=== PATIENT | male | born 1950 | race Caucasian/White ===

== ENCOUNTER → 2022-03-14 09:42 | Outpatient (BNVA) | payer MEDICARE, SELFPAY | PROVIDERS: PCP Nurse Practitioner Family; Referring Provider Nurse Practitioner Family; Visit Provider Internal Medicine Cardiovascular Disease | DX: I48.0 Paroxysmal atrial fibrillation (principal); R06.09 Other forms of dyspnea; G47.10 Hypersomnia, unspecified | CPT/HCPCS: 93005; 99202 ==

== ENCOUNTER → 2022-04-04 07:20 | Outpatient (REF) | payer MEDICARE, SELFPAY ==
--- NOTE | 2022-04-04 07:24 | CA_ITS ---
Transthoracic Echocardiogram Patient (Last, First, Middle): Miles Mitchell, Gender: Male Date of : 1950 Age: 71 Procedure Date: 04/04/2022 Procedure Type: Transthoracic Echocardiogram Location: OP Height: 175.26 cm Weight: 86.18 kg BSA: 2.02 m2 Heart Rate: 66 bpm BP: 144 / 70 mmHg Director Sales Support: JANI Referring MD: Mac Contreras MD Symptoms: R06.09 - Other forms of dyspnea Study Quality: Adequate ECG Rhythm: Sinus Conclusions: - The left ventricular systolic function is normal. The calculated ejection fraction is 62% by biplane method. - No obvious valvular pathology seen on this study. Findings Left Ventricle Normal left ventricular cavity size. The left ventricular systolic function is normal. The calculated ejection fraction is 62% by biplane method. There is no evidence of regional wall motion abnormalities. Diastolic function is normal for age. There is mild septal asymmetric hypertrophy. LV peak GLS 17%. Right Ventricle Mildly increased right ventricular cavity size. There is normal right ventricular systolic function. Atria Both atria are normal in size. Aortic Valve There is a normal trileaflet aortic valve. There is mild calcification of the aortic valve. There is no aortic valve stenosis. There is no aortic valve regurgitation. Mitral Valve The mitral valve appears normal. There is no mitral valve regurgitation. There is no mitral valve stenosis. Pulmonic Valve The pulmonic valve is likely normal. Tricuspid Valve Normal tricuspid valve structure. There is no tricuspid valve regurgitation. Tricuspid regurgitation envelope is inadequate for calculation of right ventricular systolic pressure. Great Vessels The asc aorta is normal in size. Venous The inferior vena cava is normal in size and collapses greater than 50% with inspiration. Pericardium/Pleural There is no evidence of pericardial effusion. Prior Study Comparison No prior study available for comparison. Recommendations, Care & Conclusions No obvious valvular pathology seen on this study. Measurements 2D Linear Measurements IVSd: 1.07 0.6-0.9/0.6-1.0 cm LVIDd: 5.39 3.9-5.3/4.2-5.9 cm LVIDd Index: 2.67 2.4-3.2/2.2-3.1 cm/m2 LVIDs: 3.01 2.0-3.6 cm LVPWd: 0.91 0.7-1.1 cm LA Diam: 3.90 2.7-3.8/3.0-4.0 cm LAIDs Index: 1.93 1.5-2.3 cm/m2 LV Mass: 252.80 67-162/88-224 g LV Mass Index: 125.15 43-95/49-115 g/m2 LVOT Diam: 2.20 3.0+(-)1.3 cm 2D Systolic Function EF 4C: 64.70 >55% EF 2C: 59.80 >55% EF BiP: 62.40 >55% Mitral Valve MV Pk E: 0.78 MV PK A: 0.75 MV Decel Time: 200.00 E/A: 1.00 E'Lateral: 8.81 E'Medial: 5.98 E/E' Med: 13.10 E/E' Lat: 8.90 PHT: 59.00 MVA PHT: 3.73 Decel Queens: 3.91 Aortic Valve AoV Pk Julian: 1.45 AoV Mn Julian: 1.04 AoV VTI: 0.30 AoV Pk Grad: 8.00 Aov Mn Grad: 5.00 TOMMIE Cont.VTI: 3.11 LVOT LVOT Pk Julian: 1.16 LVOT Mn Julian: 0.85 LVOT VTI: 0.25 LVOT Pk Grad: 5.00 LVOT Mn Grad: 3.00 LVOT Diam: 2.20 LVOT Area: 3.80 Diastolic Function MV Pk E: 0.78 MV Pk A: 0.75 E/A: 1.00 E'Medial: 5.98 E/E' Med: 13.10 E' Laterial: 8.81 E/E' Lat: 8.90 Right Ventricle TAPSE (mm): 25.40 TVS' Julian: 15.40 Tricuspid Valve RA Press: 3.00 Great Vessels Aorta Sinus of Valsalva: 3.60 2.0-3.5 cm Ao Asc: 3.40 2.1-3.4 cm Pulmonary Valve PV Pk Julian: 0.97 Peak PV Grad: 4.00 Updated in Other Vendor System with Status of Final Hari Gupta MD electronically signed on 04/05/2022 9:59:14 AM with status of Final
== END ==
LOC: HO.CARD 07:20
PROVIDERS: PCP Nurse Practitioner Family; Visit Provider Internal Medicine Cardiovascular Disease
DX: R06.09 Other forms of dyspnea (principal)
CPT/HCPCS: 93306; 93356

== ENCOUNTER → 2022-04-05 10:44 | Outpatient (REF) | payer MEDICARE, SELFPAY ==
--- NOTE | 2022-04-05 10:51 | CA_ITS ---
Acquisition Time: 2022-04-05 11:01:24 Total Exercise Time: 00:10:30 Test Indications: Dyspnea Medications: ELIQUIS DILTIAZEM DOXAZOSIN GLIPIZIDE LOSARTAN METFORMIN SILDENFIL Protocol: LISA Max HR: 141 BPM 93% of Pred: 151 BPM Max BP: 170/058 mmHG Max Work Load: 12.5 METS Exercise stress test with exercise 10 min 30 sec of Lisa protocol, achieving 93% MPHR, with fatigue and mild to mod sob with need to stop, no chest discomfort, without arrythmia during exercise, with one ventricular cuplet in early recovery, with normotensive response to exercise, with some EKG tracings showing ST depressions inferiorly and V6 that are suggestive of ischemia. Echo images obtained by [facility] at rest and immediately post peak exercise. Definity contrast used. Test reviewed with Dr Sparks. Referred By: Mac Contreras Overread By: JONAS WILL
== END ==
LOC: HO.CARD 10:44
PROVIDERS: PCP Nurse Practitioner Family; Visit Provider Internal Medicine Cardiovascular Disease
DX: I48.91 Unspecified atrial fibrillation (principal)
CPT/HCPCS: 93350; Q9957

== ENCOUNTER → 2022-04-26 08:25 | Outpatient (BNVA) | payer MEDICARE, SELFPAY | PROVIDERS: PCP Nurse Practitioner Family; Referring Provider Nurse Practitioner Family; Visit Provider Internal Medicine Cardiovascular Disease | DX: I48.0 Paroxysmal atrial fibrillation (principal); I10 Essential (primary) hypertension; R42 Dizziness and giddiness; Z79.01 Long term (current) use of anticoagulants; Z79.899 Other long term (current) drug therapy | CPT/HCPCS: 99212 ==

== ENCOUNTER 2022-12-05 12:39 | Outpatient (AMB) | payer MEDICARE, SELFPAY ==
[2022-12-05 12:42] VITALS: BP 104/58; PULSE 73; BMI 28.6
--- NOTE | 2022-12-05 12:42 | A.OFFVIS_ITS ---
Intake Vital Signs 12/05/22 12:42 Height 5 ft 9 in Weight 194 lb 0.108 oz BMI 28.6 BP 104/58 L Blood Pressure Location Lt brachial Position Sitting Pulse 73 Pulse Source Pulse Oximeter Intake Visit Reasons: 6 mth f/up Intake Note: 6 month follow up. No new complaints. Histological Illustrator Required: No Accompanied by: Self / Same As Patient Allergies No Known Allergies Allergy (Verified 12/05/22 12:43) Medication List - Last Reconciled 12/05/22 by Mac Contreras MD alclometasone 0.05% appl topical amlodipine 10 mg PO DAILY apixaban (Eliquis) 5 mg PO BID biotin 1 mg PO DAILY cholecalciferol (vitamin D3) 25 mcg PO DAILY diltiazem HCl 180 mg PO DAILY doxazosin 4 mg PO DAILY glipizide ER mg PO [id number] tabs PO losartan 100 mg PO DAILY lovastatin 10 mg PO DAILY metformin 1,000 mg PO BID sildenafil (pulm.hypertension) 20 mg PO DAILY PRN HPI HPI Comments History of Present Illness Details Miles comes for follow-up. He remains asymptomatic. He had 1 episode of palpitation at home any today EKG at home which showed sinus rhythm. He has not had any major episodes of atrial fibrillation. He has been doing well. No bleeding issues or neurologic events. His shortness of breath seems to have improved with exercise. Denies any exertional chest pain. No lightheadedness, syncope. Noted that he is on dual calcium channel patrick therapy for unclear reason, both amlodipine and diltiazem. His blood pressure today is on the lower side. [facility], [facility] Medical History Diabetes HTN (hypertension) Paroxysmal atrial fibrillation Surgical History Hx of prostate biopsy Family History Father Cancer Mother Stroke Social History Alcohol intake: current Alcohol intake frequency: 0-2 drinks per day Alcohol type: beer Patient Tobacco Use Status: Never used Tobacco Review of Systems Const Denies weakness ENT Denies dizziness Card Denies chest pain, Denies chest pain with activity, Denies syncope, Denies rapid heart rate, Denies pedal edema, Denies edema, Denies leg edema, Denies lightheadedness, Denies palpitations, Denies dyspnea, Denies dyspnea on exertion and Denies orthopnea Resp Denies cough, Denies dyspnea and Denies dyspnea on exertion GI Denies hematochezia and Denies change in stool character Musc Denies abnormal gait, Denies muscle cramps, Denies muscle weakness, Denies numbness, Denies radiating pain into limb and Denies tingling Neuro Denies Abnormal speech present, Denies abnormal gait, Denies dizziness, Denies syncope, Denies numbness, Denies tingling and Denies weakness Endo Denies palpitations Physical Exam Vital Signs: Last Vital Signs Pulse 73 12/05/22 12:42 BP 104/58 L 12/05/22 12:42 BMI result Body Mass Index 28.6 Const General: cooperative, comfortable, no acute distress, alert, awake, anxious and well groomed Nutritional Appearance: overweight Orientation/consciousness: patient oriented x3 Limitations: no limitations Neck Neck: Yes trachea midline, Yes supple and Yes no JVD Carotids: no bruits Chest Chest palpation & inspection: normal inspection of the chest Resp Effort & Inspection: normal respiratory effort Auscultation: clear to auscultation bilaterally Cardio Jugular venous distension: no JVD Palpation: normal PMI Rate: regular rate Rhythm: regular rhythm Heart sounds: S1 normal heart sound present, S2 normal heart sound present, no click, no gallops, no murmurs and no rubs GI Auscultation: normal bowel sounds Neuro General: patient oriented x3 and no focal motor deficits Speech: No Abnormal speech present Extrem General: Yes no clubbing, cyanosis or edema Psych Appearance: grossly normal Affect: Anxious affect present Assessment & Plan Assessment & Plan (1) Paroxysmal atrial fibrillation: Code(s): I48.0 - Paroxysmal atrial fibrillation Plan: Paroxysmal atrial fibrillation without any clinical recurrence. Continue diltiazem therapy. Continue rhythm control approach, has done well with rhythm control approach. At this time does not require antiarrhythmic drug therapy. Advised to monitor his symptoms and EKGs at home. Advised to call me if he has recurrent episodes. Continue full oral anticoagulation, currently on Eliquis 5 mg b.i.d.. Semi annual renal function test should be pursued. CHADSVASc score of 3. (2) HTN (hypertension): Code(s): I10 - Essential (primary) hypertension Plan: Hypertension which may be over corrected. He is on dual calcium channel patrick therapy with amlodipine and diltiazem. Advised to discontinue amlodipine therapy at this point time. Advised to monitor blood pressure at home and maintain a log. If his blood pressures consistently above systolic 130, advised to call my office. At which point we may increase diltiazem and/or add hydrochlorothiazide to his regimen. Low-salt diet was discussed advised to participate heart healthy lifestyle. Will follow up in the clinic in 1 year's time, sooner p.r.n.. Thank you for allowing me to partake in his care Coding Level of Care Code Est Pt Level 4 (44924) Diagnoses Paroxysmal atrial fibrillation I48.0 HTN (hypertension) I10
== END 2022-12-05 13:01 | disposition home or self-care (01) ==
PROVIDERS: Visit Provider Internal Medicine Cardiovascular Disease
DX: I48.0 Paroxysmal atrial fibrillation (principal); I10 Essential (primary) hypertension
CPT/HCPCS: 99214

== ENCOUNTER → 2022-12-05 12:39 | Outpatient (BNVA) | payer MEDICARE, SELFPAY | PROVIDERS: Visit Provider Internal Medicine Cardiovascular Disease | DX: I48.0 Paroxysmal atrial fibrillation (principal); I10 Essential (primary) hypertension | CPT/HCPCS: 99212 ==

== ENCOUNTER → 2023-08-03 09:50 | Outpatient (REF) | payer MEDICARE, SELFPAY ==
--- NOTE | 2023-08-03 09:52 | CA_ITS ---
Transthoracic Echocardiogram Patient (Last, First, Middle): Miles Mitchell, Gender: Male Date of : 1950 Age: 72 Procedure Date: 08/03/2023 Procedure Type: Transthoracic Echocardiogram Location: OP Height: 175.26 cm Weight: 86.18 kg BSA: 2.02 m2 Heart Rate: bpm BP: 118 / 62 mmHg Local Bulk Driver: TO Referring MD: Mac Contreras MD Symptoms: G45.3 - Amaurosis fugax Study Quality: Fair Conclusions: - Normal left ventricular size, thickness, systolic function, and wall motion. The visually estimated ejection fraction is between 60-65%. Diastolic function is normal for age. Normal GLS -18%. - Normal right ventricular cavity size and systolic function. - The left atrium is mildly dilated. - There is mild dilatation of the sinuses of Valsalva measuring 3.71 cm and mild dilatation of the ascending aorta measuring 3.50 cm. Findings Left Ventricle Normal left ventricular size, thickness, systolic function, and wall motion. The visually estimated ejection fraction is between 60-65%. Diastolic function is normal for age. Normal GLS -18%. Right Ventricle Normal right ventricular cavity size and systolic function. Atria The left atrium is mildly dilated. The right atrium is normal in size. Aortic Valve Normal aortic valve structure and function. There is no aortic valve stenosis. There is no aortic valve regurgitation. Mitral Valve The mitral valve appears normal. There is trace mitral valve regurgitation. There is no mitral valve stenosis. Pulmonic Valve The pulmonic valve is normal. There is no pulmonic valve regurgitation. Tricuspid Valve Normal tricuspid valve structure. There is trace tricuspid valve regurgitation. Normal right atrial pressure. Great Vessels There is mild dilatation of the sinuses of Valsalva measuring 3.71 cm and mild dilatation of the ascending aorta measuring 3.50 cm. The visualized portions of the pulmonary artery and branches are normal. Venous The inferior vena cava is normal in size and collapses greater than 50% with inspiration. Pericardium/Pleural There is no evidence of pericardial effusion. Measurements 2D Linear Measurements IVSd: 0.97 0.6-0.9/0.6-1.0 cm LVIDd: 5.30 3.9-5.3/4.2-5.9 cm LVIDd Index: 2.62 2.4-3.2/2.2-3.1 cm/m2 LVIDs: 3.20 2.0-3.6 cm LVPWd: 0.82 0.7-1.1 cm LA Diam: 3.30 2.7-3.8/3.0-4.0 cm LAIDs Index: 1.63 1.5-2.3 cm/m2 LV Mass: 215.20 67-162/88-224 g LV Mass Index: 106.53 43-95/49-115 g/m2 LVOT Diam: 2.30 3.0+(-)1.3 cm 2D Systolic Function EF 4C: 59.70 >55% EF 2C: 59.00 >55% EF BiP: 59.00 >55% Mitral Valve MV Pk E: 0.57 MV PK A: 0.43 MV Decel Time: 223.00 E/A: 1.30 E'Lateral: 6.96 E'Medial: 6.64 E/E' Med: 8.60 E/E' Lat: 8.20 PHT: 65.00 MVA PHT: 3.38 Decel [place]: 2.57 Aortic Valve AoV Pk Julian: 1.40 AoV Mn Julian: 0.98 AoV VTI: 0.28 AoV Pk Grad: 8.00 Aov Mn Grad: 4.00 TOMMIE Cont.VTI: 3.09 LVOT LVOT Pk Julian: 1.08 LVOT Mn Julian: 0.66 LVOT VTI: 0.21 LVOT Pk Grad: 5.00 LVOT Mn Grad: 2.00 LVOT Diam: 2.30 LVOT Area: 4.15 Diastolic Function MV Pk E: 0.57 MV Pk A: 0.43 E/A: 1.30 E'Medial: 6.64 E/E' Med: 8.60 E' Laterial: 6.96 E/E' Lat: 8.20 Right Ventricle TAPSE (mm): 28.10 TVS' Julian: 12.40 Tricuspid Valve RA Press: 3.00 Great Vessels Aorta Sinus of Valsalva: 3.71 2.0-3.5 cm Ao Asc: 3.50 2.1-3.4 cm Updated in Other Vendor System with Status of Final Tirso Sparks MD electronically signed on 08/05/2023 12:33:41 PM with status of Final
== END ==
LOC: HO.CARD 09:50
PROVIDERS: Visit Provider Internal Medicine Cardiovascular Disease
DX: G45.3 Amaurosis fugax (principal); R06.09 Other forms of dyspnea; I48.0 Paroxysmal atrial fibrillation; I10 Essential (primary) hypertension
CPT/HCPCS: 93306; 93356

== ENCOUNTER → 2023-08-03 09:52 | Outpatient (BNV) | payer MEDICARE, SELFPAY | PROVIDERS: Visit Provider Internal Medicine Cardiovascular Disease | DX: G45.3 Amaurosis fugax (principal) | CPT/HCPCS: 93306; 93356 ==

== ENCOUNTER 2023-12-24 13:43 | Outpatient (AMB) | payer MEDICARE, SELFPAY ==
--- NOTE | 2023-12-24 13:47 | A.OFFVIS_ITS ---
Vital Signs 12/24/23 13:48 Height 5 ft 9 in Weight 187 lb 13.341 oz BMI 27.7 BP 130/70 Blood Pressure Location Lt brachial Position Sitting Pulse 75 Pulse Source Monitor Intake Visit Reasons: 1 yr f/up Intake Note: 1 yr f/up- pt is doing fine Meter Calibrator Required: No Accompanied by: Self / Same As Patient Allergies No Known Allergies Allergy (Verified 12/05/22 12:43) Medication List - Last Reconciled 12/24/23 by Mac Contreras MD alclometasone 0.05% appl topical atorvastatin 80 mg PO DAILY cholecalciferol (vitamin D3) 25 mcg PO DAILY dabigatran etexilate (Pradaxa) 150 mg PO BID 30 days diltiazem HCl CD 180 mg PO DAILY glipizide ER mg PO BID [id number] tabs PO losartan 100 mg PO DAILY mecobalamin (vitamin B12) 2,000 mcg PO DAILY metformin 1,000 mg PO BID sildenafil (pulm.hypertension) 20 mg PO DAILY PRN HPI Comments Details: Miles comes for follow-up. He has been doing very well from cardiac perspective. He has had no cardiac symptoms including with exertion. He has had no prolonged irregular heartbeat or palpitations. Been monitoring his EKG on a regular basis at home and there is no evidence of atrial fibrillation. He is currently on dabigatran for anticoagulation tolerating well. No bleeding issues or neurologic events. Recent echocardiogram shows normal LV ejection fraction with mild left atrial enlargement and upper limits of normal ascending aortic size. He has no symptoms of heart failure. Denies any lightheadedness, syncope. Takes all his medications regularly. [facility] Medical History Diabetes HTN (hypertension) Paroxysmal atrial fibrillation Surgical History Hx of prostate biopsy Family History Father Cancer Mother Stroke Social History Alcohol intake: current Alcohol intake frequency: 0-2 drinks per day Alcohol type: beer Patient Tobacco Use Status: Never used Tobacco Review of Systems Const Denies chills, Denies fatigue, Denies fever(s), Denies frequent falls, Denies weakness, Denies weight gain and Denies weight loss ENT Denies dizziness Card Denies chest pain, Denies leg edema, Denies lightheadedness, Denies palpitations, Denies dyspnea and Denies dyspnea on exertion Resp Denies cough, Denies dyspnea and Denies dyspnea on exertion GI Denies hematochezia Musc Denies abnormal gait, Denies muscle weakness, Denies numbness, Denies radiating pain into limb and Denies tingling Neuro Denies Abnormal speech present, Denies abnormal gait, Denies dizziness, Denies frequent falls, Denies numbness, Denies tingling and Denies weakness Endo Denies fatigue and Denies palpitations Physical Exam Vital Signs: Last Vital Signs Pulse 75 12/24/23 13:48 BP 130/70 12/24/23 13:48 BMI result Body Mass Index 27.7 Const General: cooperative, comfortable, no acute distress, alert, awake, anxious and well groomed Nutritional Appearance: overweight Orientation/consciousness: patient oriented x3 Limitations: no limitations Neck Neck: Yes trachea midline, Yes supple and Yes no JVD Carotids: no bruits Chest Chest palpation & inspection: normal inspection of the chest Resp Effort & Inspection: normal respiratory effort Auscultation: clear to auscultation bilaterally Cardio Jugular venous distension: no JVD Palpation: normal PMI Rate: regular rate Rhythm: regular rhythm Heart sounds: S1 normal heart sound present, S2 normal heart sound present, no click, no gallops, no murmurs and no rubs GI Auscultation: normal bowel sounds Neuro General: patient oriented x3 and no focal motor deficits Speech: No Abnormal speech present Extrem General: Yes no clubbing, cyanosis or edema Psych Appearance: grossly normal Affect: Anxious affect present Office Procedures EKG Details: EKG shows normal sinus rhythm with normal EKG [id number], Complete Assessment & Plan Assessment & Plan (1) Paroxysmal atrial fibrillation: Code(s): I48.0 - Paroxysmal atrial fibrillation Category: Medical Plan: Paroxysmal atrial fibrillation which has remained suppressed and has done well on current medical therapy including with Cardizem. Continue Cardizem therapy. Continue aggressive risk factor modification. CHADSVASC score of at least 3. Continue full oral anticoagulation, currently on dabigatran 150 mg b.i.d.. Semi annual renal function test and annual CBC should be pursued. Avoidance of stimulants was discussed. No indication for antiarrhythmic drug therapy. Has done well with rhythm control approach will continue pursue the same. (2) HTN (hypertension): Code(s): I10 - Essential (primary) hypertension Category: Medical Plan: Hypertension on multiple antihypertensives. Has done well with blood pressure control. Importance of good blood pressure control was discussed. Continue current therapy. Goal blood pressure less than 130/84. Advised to monitor blood pressure at home maintain a log. Low-salt diet was discussed. Follow up in the clinic in 1 year's time, sooner p.r.n.. Thank you for allowing me to partake in his care Orders: Orders Basic Metabolic Panel Today I48.0 - Paroxysmal atrial fibrillation Basic Metabolic Panel 6 Months I48.0 - Paroxysmal atrial fibrillation Complete Blood Count no Diff Today I48.0 - Paroxysmal atrial fibrillation Coding Level of Care Code Est Pt Level 4 (16645) Diagnoses Paroxysmal atrial fibrillation I48.0 HTN (hypertension) I10 CPT Codes EKG - CPT: 22780-[id number], Complete ([id number])
[2023-12-24 13:48] VITALS: BP 130/70; PULSE 75; BMI 27.7
== END 2023-12-24 14:11 | disposition home or self-care (01) ==
PROVIDERS: Visit Provider Internal Medicine Cardiovascular Disease
DX: I48.0 Paroxysmal atrial fibrillation (principal); I10 Essential (primary) hypertension
CPT/HCPCS: 93010; 99214

== ENCOUNTER → 2023-12-24 13:43 | Outpatient (BNVA) | payer MEDICARE, SELFPAY | PROVIDERS: Visit Provider Internal Medicine Cardiovascular Disease | DX: I10 Essential (primary) hypertension (principal); I48.0 Paroxysmal atrial fibrillation | CPT/HCPCS: 93005; 99212 ==

== ENCOUNTER 2025-03-09 14:40 | Outpatient (AMB) | payer MEDICARE, SELFPAY ==
--- NOTE | 2025-03-09 14:41 | MHC.OFFVIS ---
Vital Signs 03/09/25 14:42 Height 5 ft 9 in Weight 182 lb 15.739 oz BMI 27.0 BP 130/74 Blood Pressure Location Lt brachial Position Sitting Pulse 64 Intake Visit Reasons: r/s 12/30 1 yr f/u w/ekg labs [facility] Intake Note: 1 year follow-up with ekg feeling good Piano Regulator Inspector Required: No Allergies No Known Allergies Allergy (Verified 12/05/22 12:43) Medication List - Last Reconciled 03/09/25 by Mac Contreras MD alclometasone 0.05% appl topical atorvastatin 80 mg PO DAILY cholecalciferol (vitamin D3) 25 mcg PO DAILY dabigatran etexilate (Pradaxa) 150 mg PO BID 60 days empagliflozin (Jardiance) 25 mg PO DAILY [id number] tabs PO losartan 100 mg PO DAILY mecobalamin (vitamin B12) 2,000 mcg PO DAILY metformin 1,000 mg PO BID sildenafil (pulm.hypertension) 20 mg PO DAILY PRN spironolactone 50 mg PO DAILY vibegron (Gemtesa) 75 mg PO DAILY HPI Comments Details: Miles comes for follow-up. Overall he has been doing well. Recently was running low blood pressure and had 1 time lightheaded spell in his diltiazem was stopped 2 days ago. He also has variable sugar in his currently in the process of monitoring that. He has stopped drinking alcohol about 6 months events since then he has lost weight and says his sugar control has been better. He has not noticed any exertional chest pain. He has not of atrial fibrillation. Denies any bleeding issues or neurologic events. Syncopal episodes. [facility] Medical History Diabetes HTN (hypertension) Paroxysmal atrial fibrillation Surgical History Hx of prostate biopsy Family History Father Cancer Mother Stroke Social History Alcohol intake: current Alcohol intake frequency: 0-2 drinks per day Alcohol type: beer Patient Tobacco Use Status: Never used Tobacco Review of Systems Const Denies chills, Denies fatigue, Denies fever(s), Denies frequent falls, Denies weakness, Denies weight gain and Denies weight loss ENT Denies dizziness Card Denies chest pain, Denies leg edema, Denies lightheadedness, Denies palpitations, Denies dyspnea, Denies dyspnea on exertion, Denies orthopnea and Denies other (loss of consciousness) Resp Denies cough, Denies dyspnea and Denies dyspnea on exertion GI Denies hematochezia and Denies change in stool character Musc Denies abnormal gait, Denies muscle weakness, Denies numbness, Denies radiating pain into limb and Denies tingling Neuro Denies Abnormal speech present, Denies abnormal gait, Denies dizziness, Denies frequent falls, Denies numbness, Denies tingling and Denies weakness Endo Denies fatigue and Denies palpitations Physical Exam Vital Signs: Last Vital Signs Pulse 64 03/09/25 14:42 BP 130/74 03/09/25 14:42 BMI result Body Mass Index 27.0 Const General: cooperative, comfortable, no acute distress, alert, awake, anxious and well groomed Nutritional Appearance: overweight Orientation/consciousness: patient oriented x3 Limitations: no limitations Neck Neck: Yes trachea midline, Yes supple and Yes no JVD Carotids: no bruits Chest Chest palpation & inspection: normal inspection of the chest Resp Effort & Inspection: normal respiratory effort Auscultation: clear to auscultation bilaterally Cardio Jugular venous distension: no JVD Palpation: normal PMI Rate: regular rate Rhythm: regular rhythm Heart sounds: S1 normal heart sound present, S2 normal heart sound present, no click, no gallops, no murmurs and no rubs GI Auscultation: normal bowel sounds Neuro General: patient oriented x3 and no focal motor deficits Speech: No Abnormal speech present Extrem General: Yes no clubbing, cyanosis or edema Psych Appearance: grossly normal Affect: Anxious affect present Office Procedures EKG Details: EKG shows normal sinus rhythm normal EKGs [id number], Complete Assessment & Plan Assessment & Plan (1) Paroxysmal atrial fibrillation: Code(s): I48.0 - Paroxysmal atrial fibrillation Category: Medical Plan: Paroxysmal atrial fibrillation highly symptomatic. Currently remained suppressed. Has no recurrence. At this point time continue monitor clinically. There was no indication for antiarrhythmic drug therapy. Continue rhythm control approach. Various treatment options were discussed. Avoidance of alcohol and other stimulants was discussed. Continue full oral anticoagulation, currently on Pradaxa 150 mg b.i.d.. Semi annual renal function test should be pursued. (2) HTN (hypertension): Code(s): I10 - Essential (primary) hypertension Category: Medical Plan: Hypertension which is currently well optimized after significant weight control blood pressure is on the lower side and Cardizem was stopped. This is appropriate. However importance of aggressive blood pressure control was discussed. He does have strong family history for both atrial fibrillation has cardiomyopathy in his mom. Spironolactone losartan a both neurohormonal modulators and discussed with him that likelihood of developing cardiomyopathy exist but is currently on the low side. Signs and symptoms of heart failure were discussed. Advised to monitor blood pressure at home maintain a log. Goal blood pressure less than 130/84. Low-salt diet was discussed. Encouraged to maintain activity level as tolerated. Will follow up in the clinic in 1 year's time, sooner PRN. Thank you for allowing me to partake in his care Coding Level of Care Code Est Pt Level 4 (74675) Complex EM visit Add On G2211 Diagnoses Paroxysmal atrial fibrillation I48.0 HTN (hypertension) I10 CPT Codes EKG - CPT: 67890-[id number], Complete ([id number])
[2025-03-09 14:42] VITALS: BP 130/74; PULSE 64; BMI 27.0
== END 2025-03-09 15:04 | disposition home or self-care (01) ==
LOC: HO.HCS 14:41
PROVIDERS: Visit Provider Internal Medicine Cardiovascular Disease
DX: I48.0 Paroxysmal atrial fibrillation (principal); I10 Essential (primary) hypertension
CPT/HCPCS: 93010; 99214; G2211

== ENCOUNTER → 2025-03-09 14:40 | Outpatient (BNVA) | payer MEDICARE, SELFPAY | PROVIDERS: Visit Provider Internal Medicine Cardiovascular Disease | DX: I10 Essential (primary) hypertension (principal); I48.0 Paroxysmal atrial fibrillation; Z79.01 Long term (current) use of anticoagulants; E11.9 Type 2 diabetes mellitus without complications; Z79.84 Long term (current) use of oral hypoglycemic drugs | CPT/HCPCS: 93005; 99212 ==